=== PATIENT | female | born 1980 | race Caucasian/White ===

== ENCOUNTER 2018-12-11 15:17 | Emergency (ER) | payer MEDICAID, OTHER ==
[~2018-12-11] VITALS: Ht 172.7 cm; Wt 82.0 kg
[~2018-12-11 15:17] MED LIST: OXYC-145 PO
[2018-12-11 15:29] VITALS: BP 109/71
== END 2018-12-11 17:10 | disposition home or self-care (01) ==
LOC: ER 15:18
DX: S93.691A Other sprain of right foot, initial encounter (principal); Z98.890 Other specified postprocedural states; V86.56XA Driver of dirt bike or motor/cross bike injured in nontraffic accident, initial encounter; Y93.55 Activity, bike riding; Y92.413 State road as the place of occurrence of the external cause; Y99.9 Unspecified external cause status
CPT/HCPCS: 73630; 99283

== ENCOUNTER 2019-08-18 18:37 | Emergency (ER) | payer OTHER ==
[~2019-08-18] VITALS: Ht 170.2 cm; Wt 75.9 kg
--- NOTE | 2019-08-18 21:35 | NUR ---
NECK BRACE REMOVED BY DR SHEPHERD AT BEDSIDE
[2019-08-18 22:15] VITALS: BP 135/89
== END 2019-08-18 21:47 | disposition home or self-care (01) ==
LOC: ER 18:38
DX: S16.1XXA Strain of muscle, fascia and tendon at neck level, initial encounter (principal); F10.99 Alcohol use, unspecified with unspecified alcohol-induced disorder; V43.52XA Car driver injured in collision with other type car in traffic accident, initial encounter; Y93.89 Activity, other specified; Y92.488 Other paved roadways as the place of occurrence of the external cause; Y99.8 Other external cause status; Z98.890 Other specified postprocedural states; Z79.899 Other long term (current) drug therapy; Y90.9 Presence of alcohol in blood, level not specified
CPT/HCPCS: 99281

== ENCOUNTER 2021-09-23 01:22 | Emergency (ER) | payer MEDICAID ==
[~2021-09-23] VITALS: Ht 172.7 cm; Wt 77.3 kg
[2021-09-23] MEDS ORDERED: HYDROcodone/acetaminophen 5mg/325mg tablet PO ONE (04:35)
--- NOTE | 2021-09-23 10:46 | NUR ---
sailaja mother [phone], called to see how daughter doing.
[2021-09-23] MEDS ORDERED: AMOX-101 PO (11:44)
[2021-09-23] MEDS ORDERED: HYDR-3965 PO (12:21)
[2021-09-23 12:22] VITALS: BP 109/65
== END 2021-09-23 12:25 | disposition home or self-care (01) ==
LOC: ER 01:22
DX: S00.83XA Contusion of other part of head, initial encounter (principal); S80.212A Abrasion, left knee, initial encounter; J93.9 Pneumothorax, unspecified; V49.9XXA Car occupant (driver) (passenger) injured in unspecified traffic accident, initial encounter; Y93.89 Activity, other specified; Y92.89 Other specified places as the place of occurrence of the external cause; Y99.8 Other external cause status
CPT/HCPCS: 70450; 71045; 72125; 99284